=== PATIENT | male | born 1965 ===

== ENCOUNTER 2018-07-04 18:37 | Emergency (ER) | payer MEDICARE, OTHER ==
[2018-07-04 18:58] VITALS: BP 134/54
[2018-07-04] MEDS: HYDROcodone/ACETAMIN 5-325 MG* 1 TAB PO ONE (19:20)
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
[2018-07-05 11:10] LABS: ABS Basophils 0.1 10^3/ul (0-0.2); ABS Eosinophils 0.1 10^3/ul (0-0.6); ABS Lymphocytes 1.8 10^3/ul (1.0-4.8); ABS Monocytes 0.7 10^3/ul (0-0.8); ABS Neutrophils 13.7 10^3/ul (1.5-7.7); ABS Nucleated RBC 0 10^3/ul; Eosinophil % 0.3 % (0-6); Hematocrit 44 % (42-52); Hemoglobin 15.1 g/dl (14.0-18.0); Lymphocyte % 10.9 % (25-47); Mean Corpuscular HGB Conc 34 g/dl (31-36); Mean Corpuscular Hemoglobin 32 pg (27-31); Mean Corpuscular Volume 95 fL (80-94); Mean Platelet Volume 8.6 fL (7.4-10.4); Nucleated Red Blood Cells % 0; Platelet Count 299 10^3/ul (150-450); Red Blood Count 4.65 10^6/ul (4.00-5.40); Red Cell Distribution Width 13 % (10.5-15); White Blood Count 16.3 10^3/ul (3.5-10.8)
[2018-07-05 11:23] LABS: EGFR Non-African American 74.2 (>60)
--- NOTE | 2018-07-05 15:35 | UC ---
- Progress Note Progress Note: Elevated WBC Elevated ALK PHOS If febrile or pain not controlled I suggest he go to the ER Both theses need further work up Needs to see a primary care provider OJ Course/Dx - Diagnoses Provider Diagnoses: Shoulder pain, acute Discharge - Sign-Out/Discharge Documenting (check all that apply): Post-Discharge Follow Up All imaging exams completed and their final reports reviewed: Yes - Discharge Plan Condition: Stable Disposition: HOME Prescriptions: HYDROcodone/ACETAMIN 5-325 MG* [[place] 5-325 TAB*] 1 tab PO Q6H PRN #20 tab MDD 4 PRN Reason: Pain Patient Education Materials: Shoulder Pain (ED) Referrals: [facility] [Outside] No Primary Care Phys,NOPCP [Primary Care Provider] - Additional Instructions: Please follow up in the next 2-3 days. - Billing Disposition and Condition Condition: STABLE Disposition: Home
== END 2018-07-04 21:05 | disposition home or self-care (01) ==
LOC: UCEAST 18:37
DX: M25.512 Pain in left shoulder (principal)
CPT/HCPCS: 36415; 80053; 85025; 86140; 99203; G0463

== ENCOUNTER 2018-07-06 14:56 | Inpatient (IN) | payer MEDICARE, OTHER ==
[2018-07-06] MEDS ORDERED: NS 0.9% 1000 ML* 1,000 ML IV ONE (16:36)
[2018-07-06] MEDS ORDERED: Ketorolac INJ* 30 MG/ML 1 ML VIAL IV PUSH ONE (16:36)
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
[2018-07-06 17:08] LABS: ABS Basophils 0.1 10^3/ul (0-0.2); ABS Eosinophils 0.1 10^3/ul (0-0.6); ABS Lymphocytes 1.8 10^3/ul (1.0-4.8); ABS Monocytes 0.7 10^3/ul (0-0.8); ABS Neutrophils 8.6 10^3/ul (1.5-7.7); ABS Nucleated RBC 0 10^3/ul; Eosinophil % 0.7 % (0-6); Hematocrit 44 % (42-52); Hemoglobin 15.1 g/dl (14.0-18.0); Lymphocyte % 16.3 % (25-47); Mean Corpuscular HGB Conc 35 g/dl (31-36); Mean Corpuscular Hemoglobin 33 pg (27-31); Mean Corpuscular Volume 95 fL (80-94); Mean Platelet Volume 7.8 fL (7.4-10.4); Nucleated Red Blood Cells % 0; Platelet Count 283 10^3/ul (150-450); Red Cell Distribution Width 13 % (10.5-15); White Blood Count 11.3 10^3/ul (3.5-10.8)
[2018-07-06 17:14] LABS: INR 0.96 (0.77-1.02)
[2018-07-06 17:26] LABS: EGFR Non-African American 69.6 (>60)
[2018-07-06] MEDS ORDERED: Iohexol 300* (CONTRAST) 10 ML SDV IV ONE (17:35)
[2018-07-06] MEDS ORDERED: Piperacillin/Tazobac ADVAN(*) 3.375 GM in NS 0.9% 100 ML* 100 ML IVPB ONE (20:17)
[2018-07-06] MEDS ORDERED: Acetaminophen TAB* 325 MG PO PRN (20:18)
[2018-07-06] MEDS ORDERED: HYDROcodone/ACETAMIN 5-325 MG* 1 TAB PO PRN (20:18)
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
[2018-07-06] MEDS ORDERED: Zosyn per Pharmacy* NOTE FOLLOW UP SCH (21:00)
[2018-07-06] MEDS ORDERED: Vancomycin per Pharmacy* NOTE FOLLOW UP SCH (21:00)
[2018-07-06] MEDS ORDERED: Vancomycin(*) 1,000 MG in NS 0.9% 250 ML* 250 ML IVPB ONE (21:00)
[2018-07-07] MEDS: ZOSYN 3.375 GM Q8H per EXTENDED INFUSION IVPB SCH ×4 (01:04→08:28)
[2018-07-07 05:24] LABS: Urine Appearance Clear; Urine Blood Negative (Negative); Urine Color Yellow; Urine Ketones Negative (Negative); Urine Protein Negative (Negative); Urine Specific Gravity 1.048 (1.010-1.030); Urine Urobilinogen Positive (Negative)
[2018-07-07] MEDS ORDERED: Vancomycin(*) 750 MG in NS 0.9% 250 ML* 250 ML IVPB SCH (06:00)
[2018-07-07 06:35] LABS: ABS Basophils 0.1 10^3/ul (0-0.2); ABS Eosinophils 0.1 10^3/ul (0-0.6); ABS Lymphocytes 1.7 10^3/ul (1.0-4.8); ABS Monocytes 0.7 10^3/ul (0-0.8); ABS Neutrophils 7.2 10^3/ul (1.5-7.7); ABS Nucleated RBC 0 10^3/ul; Hematocrit 37 % (42-52); Lymphocyte % 17.1 % (25-47); Mean Corpuscular HGB Conc 35 g/dl (31-36); Mean Corpuscular Hemoglobin 33 pg (27-31); Mean Corpuscular Volume 94 fL (80-94); Mean Platelet Volume 7.3 fL (7.4-10.4); Nucleated Red Blood Cells % 0.1; Platelet Count 243 10^3/ul (150-450); Red Blood Count 3.92 10^6/ul (4.00-5.40); Red Cell Distribution Width 13 % (10.5-15); White Blood Count 9.8 10^3/ul (3.5-10.8)
[2018-07-07 06:53] LABS: EGFR Non-African American 76.7 (>60)
--- NOTE | 2018-07-07 09:36 | PN ---
Progress Note - Progress Note Date of Service: 07/07/18 Note: He is feeling much better this morning. The shoulder pain is much improved. AVSS Near full range of motion left shoulder with minimal discomfort. Erythema in anterior upper arm improved. A/P: Low concern for septic arthritis Sling is as needed, may move arm as tolerated. IV antibiotics with likely transition to po antibiotics on discharge. Follow up with me as an outpatient, .
[2018-07-07] MEDS ORDERED: Nicotine Inhaler* 10 MG AMP INH PRN (11:25)
[2018-07-07] MEDS ORDERED: Mouth Piece, Nicotine* 1 EACH CARTRIDGE ONE (11:32)
[2018-07-07 11:51] VITALS: BP 123/73
[2018-07-07] MEDS ORDERED: Nicotine PATCH 21 MG/24 HR* PATCH TRANSDERM SCH (12:00)
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
[2018-07-08] MEDS ORDERED: Vancomycin Trough Check NOTE FOLLOW UP ONE (06:00)
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
== END 2018-07-07 12:40 | disposition home or self-care (01) | DRG 549 ==
LOC: ED 14:56 → OR 19:11 → MED 20:15
PROVIDERS: ADMIT Internal Medicine; ATTEND Internal Medicine
PROC: 0R9K3ZX Drainage of Left Shoulder Joint, Percutaneous Approach, Diagnostic (ICD-10-PCS; principal; 2018-07-06)
DX: M00.9 Pyogenic arthritis, unspecified (principal); L03.114 Cellulitis of left upper limb; F17.210 Nicotine dependence, cigarettes, uncomplicated; Z83.3 Family history of diabetes mellitus; Z82.49 Family history of ischemic heart disease and other diseases of the circulatory system
CPT/HCPCS: 36415; 80048; 80053; 81003; 83605; 84484; 84550; 85025; 85610; 85652; 86140; 86618; 87040; 93005; 99203; 99283; A9270-GY; G0463; J1885; J2543; J3370